=== PATIENT | male | born 1945 | race Two or more races ===

== ENCOUNTER 2018-01-18 07:36 | Emergency (ER) | payer MEDICARE, BC ==
[~2018-01-18] VITALS: Ht 177.8 cm; Wt 74.0 kg
[2018-01-18 07:43] VITALS: BP 138/68; PULSE 80; RESP 16; TEMP 97.6; O2SAT 98
--- NOTE | 2018-01-18 08:05 | PD ---
HPI Chief Complaint: Syncope with Fall Time Seen by Provider: 08:01 Travel History International Travel<30 days: No Contact w/Intl Traveler<30days: No History of Present Illness HPI 72-year-old male arrives with from home. He urinated this morning and upon bending over to flush the toilet lost consciousness and fell to the ground. He helped himself back up and then upon attempting to flush the toilet a second time again fell and lost consciousness this time into the bathtub. He woke up in the bathtub. He reports taking Robitussin the past day for cough. He is otherwise been in his normal state of health and he reports sleeping much better than normal lately. No chest pain or shortness of breath. No nausea vomiting or dizziness in the ER. [facility] Social History Tobacco Use: No Allergies-Medications (Allergen,Severity, Reaction): Coded Allergies: Penicillins (Verified Allergy, Unknown, 01/18/18) Reported Meds & Prescriptions Reported Meds & Active Scripts Active Reported Synthroid (Levothyroxine Sodium) 75 Mcg Tab 75 Mcg PO DAILY Simvastatin 40 Mg Tab 40 Mg PO HS Triamterene-Hydrochlorothiazide 37.5-25 Mg Cap 1 Cap PO DAILY Metoprolol Succinate ER 24 HR (Metoprolol Succinate) 25 Mg Tab 25 Mg PO DAILY Review of Systems Except as stated in HPI: all other systems reviewed are Neg General / Constitutional: No: Fever Cardiovascular: No: Chest Pain or Discomfort, Palpitations, Irregular Rhythm, Diaphoresis Respiratory: Positive: Cough, No: Shortness of Breath Physical Exam Narrative GENERAL: 72-year-old male well-nourished well-developed Vital Signs Date Time Temp Pulse Resp B/P (MAP) Pulse Ox O2 Delivery O2 Flow Rate FiO2 01/18/18 07:43 97.6 80 16 138/68 (91) 98 Room Air SKIN: Warm and dry. HEAD: Atraumatic. Normocephalic. EYES: Pupils equal and round. No scleral icterus. No injection or drainage. ENT: No nasal bleeding or discharge. Mucous membranes pink and moist. NECK: Trachea midline. No JVD. CARDIOVASCULAR: Regular rate and rhythm. RESPIRATORY: No accessory muscle use. Clear to auscultation. Breath sounds equal bilaterally. GASTROINTESTINAL: Abdomen soft, non-tender, nondistended. Hepatic and splenic margins not palpable. MUSCULOSKELETAL: Extremities without clubbing, cyanosis, or edema. No obvious deformities. NEUROLOGICAL: Cranial nerves are normal 3 through 12. Motor function is normal in the upper and lower extremities 5/5 active passive. Speech memory mentation normal. PSYCHIATRIC: Appropriate mood and affect; insight and judgment normal. Data Data Last Documented VS Vital Signs Date Time Temp Pulse Resp B/P (MAP) Pulse Ox O2 Delivery O2 Flow Rate FiO2 01/18/18 10:45 01/18/18 10:16 71 20 97 01/18/18 07:43 97.6 Room Air Orders Orders Electrocardiogram (01/18/18 08:02) Basic Metabolic Panel (Bmp) (01/18/18 08:02) Complete Blood Count With Diff (01/18/18 08:02) Magnesium (Mg) (01/18/18 08:02) Ckmb (Isoenzyme) Profile (01/18/18 08:02) Troponin I (01/18/18 08:02) Chest, Single Ap (01/18/18 08:02) Ct Brain W/O Iv Contrast(Rout) (01/18/18 08:02) Ecg Monitoring (01/18/18 08:02) Iv Access Insert/Monitor (01/18/18 08:02) Oximetry (01/18/18 08:02) Orthostatic Vital Signs (01/18/18 08:02) Potassium Chloride (Kcl) (01/18/18 09:30) Ed Discharge Order (01/18/18 10:28) Labs Laboratory Tests Test 01/18/18 08:20 White Blood Count 5.6 TH/MM3 Red Blood Count 4.80 MIL/MM3 Hemoglobin 13.5 GM/DL Hematocrit 41.7 % Mean Corpuscular Volume 86.9 FL Mean Corpuscular Hemoglobin 28.1 PG Mean Corpuscular Hemoglobin Concent 32.3 % Red Cell Distribution Width 12.5 % Platelet Count 181 TH/MM3 Mean Platelet Volume 7.7 FL Neutrophils (%) (Auto) 56.6 % Lymphocytes (%) (Auto) 28.0 % Monocytes (%) (Auto) 11.4 % Eosinophils (%) (Auto) 3.0 % Basophils (%) (Auto) 1.0 % Neutrophils # (Auto) 3.1 TH/MM3 Lymphocytes # (Auto) 1.6 TH/MM3 Monocytes # (Auto) 0.6 TH/MM3 Eosinophils # (Auto) 0.2 TH/MM3 Basophils # (Auto) 0.1 TH/MM3 CBC Comment DIFF FINAL Differential Comment Blood Urea Nitrogen 11 MG/DL Creatinine 1.00 MG/DL Random Glucose 101 MG/DL Calcium Level 8.5 MG/DL Magnesium Level 2.6 MG/DL Sodium Level 138 MEQ/L Potassium Level 3.3 MEQ/L Chloride Level 102 MEQ/L Carbon Dioxide Level 29.9 MEQ/L Anion Gap 6 MEQ/L Estimat Glomerular Filtration Rate 73 ML/MIN Total Creatine Kinase 98 U/L Troponin I LESS THAN 0.02 NG/ML MDM Medical Decision Making Medical Screen Exam Complete: Yes Emergency Medical Condition: Yes Medical Record Reviewed: Yes Differential Diagnosis Anemia, metabolic disarray, arrhythmia, intracranial hemorrhage, pulmonary embolism, sepsis, vasovagal event Narrative Course EKG shows a sinus rhythm at a rate of 75 with a left axis deviation and no preexcitation CBC & BMP Diagram 01/18/18 08:20 Calcium Level 8.5, Magnesium Level 2.6 H The potassium was replenished The troponin is less than 0.02 Overall the patient's quite well in appearance. Etiology somewhat unclear however post micturition syncope is considered most likely especially in the setting of cough medication ingestion. The patient is reliable outside follow- up with Dr. Britt and is suitable for discharge home with a plan for telemetry and/or other investigation is deemed appropriate. Diagnosis Primary Impression: Syncope and collapse Additional Impression: Hypokalemia Referrals: Srinivas Giordano MD 1 day Med/Other Pt SpecificInfo: No Change to Meds Disposition: 01 DISCHARGE HOME Condition: Stable Dom Panchal MD Jan 18, 2018 08:05
[2018-01-18] MEDS ORDERED: LEVO.075 PO (08:32)
[2018-01-18] MEDS ORDERED: METO1TAB42 PO (08:32)
[2018-01-18] MEDS ORDERED: SIMV40TA PO (08:32)
[2018-01-18] MEDS ORDERED: TRIA37.53 PO (08:32)
[2018-01-18 08:33] LABS: AUTOMATED NEUTROPHIL # 3.1 TH/MM3 (1.8-7.7); BASOPHIL # 0.1 TH/MM3 (0-0.2); EOSINOPHIL # 0.2 TH/MM3 (0-0.4); HEMATOCRIT 41.7 % (39.0-51.0); HEMOGLOBIN 13.5 GM/DL (13.0-17.0); LYMPHOCYTE # 1.6 TH/MM3 (1.0-4.8); MEAN CELL VOLUME 86.9 FL (80.0-100.0); MEAN CORPUSCULAR HEMOGLOBIN 28.1 PG (27.0-34.0); MEAN CORPUSCULAR HGB CONC 32.3 % (32.0-36.0); MEAN PLATELET VOLUME 7.7 FL (7.0-11.0); MONO % 11.4 % (0.0-8.0); MONOCYTE # 0.6 TH/MM3 (0-0.9); NEUT % 56.6 % (16.0-70.0); PLATELET COUNT 181 TH/MM3 (150-450); RED CELL DISTRIBUTION WIDTH 12.5 % (11.6-17.2); WHITE BLOOD COUNT 5.6 TH/MM3 (4.0-11.0)
--- NOTE | 2018-01-18 08:36 | RADRPT ---
EXAM DATE/TIME: 01/18/2018 08:14 [facility] COMPARISON: No previous studies available for comparison. INDICATIONS : Syncope, cough, weak, dizzy MEDICAL HISTORY : Hypertension. SURGICAL HISTORY : None. ENCOUNTER: Initial ACUITY: 1 day PAIN SCORE: 0/10 LOCATION: Bilateral chest FINDINGS: The heart is normal. The pulmonary vascular pattern is normal. No focal infiltrate is noted. Tiny nod ular density is noted within the right lung base consistent with possible granuloma. Nonemergent outp atient CT of the chest would be helpful to confirm calcification within this tiny nodule if clinicall y indicated. CONCLUSION: 1. No acute cardiopulmonary disease. 2. Tiny nodular density is noted within the right lung base consistent with possible granuloma. Nonem ergent outpatient CT of the chest would be helpful to confirm calcification within this tiny nodule i f clinically indicated. Nam Kong MD on January 18, 2018 at 8:31 Board Certified Radiologist. This report was verified electronically.
[2018-01-18 08:41] LABS: CHLORIDE 102 MEQ/L (98-107); SODIUM (NA) 138 MEQ/L (136-145)
[2018-01-18 08:43] LABS: CALCIUM 8.5 MG/DL (8.5-10.1)
[2018-01-18 08:44] LABS: BICARBONATE 29.9 MEQ/L (21.0-32.0); BLOOD UREA NITROGEN 11 MG/DL (7-18); GLUCOSE,RANDOM 101 MG/DL (74-106); MAGNESIUM 2.6 MG/DL (1.5-2.5)
--- NOTE | 2018-01-18 08:45 | RADRPT ---
EXAM DATE/TIME: 01/18/2018 08:33 [facility] COMPARISON: No previous studies available for comparison. INDICATIONS : Syncope. RADIATION DOSE: 62.04 CTDIvol (mGy) MEDICAL HISTORY : Hypertension. SURGICAL HISTORY : None. ENCOUNTER: Initial ACUITY: 1 day PAIN SCALE: 0/10 LOCATION: cranial TECHNIQUE: Multiple contiguous axial images were obtained of the head. Using automated exposure control and adj ustment of the mA and/or kV according to patient size, radiation dose was kept as low as reasonably a chievable to obtain optimal diagnostic quality images. DICOM format image data is available electro nically for review and comparison. FINDINGS: CEREBRUM: The ventricles are normal for age. No evidence of midline shift, mass lesion, hemorrhage or acute in farction. No extra-axial fluid collections are seen. POSTERIOR FOSSA: The cerebellum and brainstem are intact. The 4th ventricle is midline. The cerebellopontine angle i s unremarkable. EXTRACRANIAL: The visualized portion of the orbits is intact. SKULL: The calvaria is intact. No evidence of skull fracture. CONCLUSION: No acute disease. Nam Kong MD on January 18, 2018 at 8:42 Board Certified Radiologist. This report was verified electronically.
[2018-01-18 08:47] LABS: GLOMERULAR FILTRATION RATE 73 ML/MIN (>89)
[2018-01-18 08:52] LABS: TROPONIN I LESS THAN 0.02 NG/ML (0.02-0.05)
[2018-01-18 08:54] VITALS: BP_SYST 123; BP_SYST 131; BP_SYST 140; BP_DIAS 69; BP_DIAS 79; BP_DIAS 82; RESP 14; RESP 16
[2018-01-18] MEDS ORDERED: POTASSIUM CHLORIDE 20 MEQ CONTROLLED RELEASE TAB PO ONE (09:30)
[2018-01-18 10:16] VITALS: BP 125/75; PULSE 71; RESP 20; O2SAT 97
--- NOTE | 2018-01-18 19:39 | EKG ---
Date Performed: 01/18/2018 Time Performed: 08:06:30 PTAGE: 72 years EKG: Sinus rhythm MARKED LEFT AXIS DEVIATION Since the previous tracing, no significant change noted ABNORMAL ECG NO PREVIOUS TRACING DOCTOR: Raina Schmidt Interpretating Date/Time 01/18/2018 19:38:37
== END 2018-01-18 10:46 | disposition home or self-care (01) ==
LOC: PHED 07:36
DX: R55 Syncope and collapse (principal); E87.6 Hypokalemia; R94.31 Abnormal electrocardiogram [ECG] [EKG]; R05 Cough; Z79.899 Other long term (current) drug therapy; Z88.0 Allergy status to penicillin
CPT/HCPCS: 70450; 71045; 80048; 82550; 83735; 84484; 85025; 93005; 99285